=== PATIENT | male | born 1970 | race Caucasian/White ===

== ENCOUNTER 2023-12-18 08:31 | Outpatient (CLI) | payer OTHER, SELFPAY ==
--- NOTE | 2023-12-18 08:34 | XR_ITS ---
FINAL REPORT CLINICAL HISTORY: foot pain COMPARISON: None FINDINGS: RIGHT FOOT 3 views of the right foot were obtained. There is no acute fracture or dislocation. Mild hallux valgus deformity is noted. There is mild degenerative change. Loose bodies are noted at the ankle. Soft tissues are unremarkable. IMPRESSION: Degenerative/chronic changes without acute bony abnormality. Reviewed, Interpreted and Dictated by Patrick Fontanez III, MD Transcribed by Grace Peña Authenticated and [facility]
--- NOTE | 2023-12-18 08:34 | XR_ITS ---
FINAL REPORT CLINICAL HISTORY: foot pain COMPARISON: None FINDINGS: LEFT FOOT Three views of the left foot demonstrate no acute fracture or dislocation. Mild hallux valgus deformity is noted. There is mild degenerative change. The soft tissues are unremarkable. IMPRESSION: Mild degenerative/chronic changes without acute bony abnormality. Reviewed, Interpreted and Dictated by Patrick Fontanez III, MD Transcribed by Grace Peña Authenticated and . [facility]
[2023-12-18 11:25] LABS: Basophils % 0.7 % (0.1-2.0); Eosinophils # 0.2 K/mm3 (0.0-0.4); Eosinophils % 4.2 % (0.1-12.0); Hematocrit 42.2 % (42.0-52.0); Hemoglobin 16.3 g/dL (14.1-18.0); Lymphocytes # 1.1 K/mm3 (0.7-4.5); Lymphocytes % 20.7 % (10-50); Mean Corpuscular HGB Conc 38.6 g/dL (31.8-35.4); Mean Corpuscular Hemoglobin 35.4 pg (27.0-31.2); Mean Corpuscular Volume 91.7 fl (80-94); Mean Platelet Volume 7.3 fl (7.4-10.4); Monocytes # 0.3 K/mm3 (0.1-1.0); Monocytes % 5.9 % (1.7-9.3); Neutrophils # 3.5 K/mm3 (1.8-7.8); Neutrophils % 68.5 % (37.0-80.0); Platelet Count 212 K/mm3 (142-424); Red Blood Count 4.61 M/mm3 (4.60-6.20); Red Cell Distribution Width 13.6 % (11.5-17.5); White Blood Count 5.1 K/mm3 (4.8-10.8)
[2023-12-18 11:42] LABS: Alanine Aminotransferase 57 U/L (12-78); Albumin Level 4.6 g/dl (3.5-5.0); Albumin/Globulin Ratio 1.6 (1.1-1.8); Alkaline Phosphatase 71 U/L (38-126); Anion Gap 9.4 mEq/L (5-15); Aspartate Amino Transferase 36 U/L (17-59); Bilirubin,Total 0.6 mg/dl (0.2-1.3); Blood Urea Nitrogen 17 mg/dl (9-20); Calcium 9.9 mg/dl (8.4-10.2); Carbon Dioxide 30 mmol/L (22.0-30.0); Chloride 104 mmol/L (98-107); Estimated Glomerular Filt Rate 88 ml/min (>60); GFR (African American) 107 ML/MIN (>60); Globulin 2.9 g/dL (1.3-3.2); Glucose 103 mg/dl (74-100); Potassium 4.4 mmoL/L (3.5-5.1); Sodium 139 mmol/L (136-145); Total Protein,Serum 7.5 g/dl (6.3-8.2); Uric Acid 6.9 mg/dl (3.5-8.5)
[2023-12-18 11:48] LABS: C-Reactive Protein 2.7 mg/L (0-4)
[2023-12-18 14:57] LABS: Erythrocyte Sedimentation Rate 8 mm/hr (0-20)
[2023-12-19 12:13] LABS: RA Latex Turbid. <10.0 IU/mL (<14.0)
[2023-12-19 12:49] LABS: Thyroid Stimulating Hormone 2.35 uIU/mL (0.465-4.68)
[2023-12-20 17:18] LABS: Antinuclear Antibodies, IFA Negative (.)
[2023-12-28 02:49] LABS: 1,25 Dihydroxy Vitamin D 87 pg/mL (.); 1,25-Dihydroxy, Vitamin D-2 <10 pg/mL (.); 1,25-Dihydroxy, Vitamin D-3 87 pg/mL (.)
== END 2023-12-18 23:59 | disposition home or self-care (01) ==
PROVIDERS: PCP Family Medicine; Visit Provider Podiatrist
DX: M79.671 Pain in right foot (principal); M79.672 Pain in left foot; G57.62 Lesion of plantar nerve, left lower limb; M19.072 Primary osteoarthritis, left ankle and foot; S93.622A Sprain of tarsometatarsal ligament of left foot, initial encounter; R60.9 Edema, unspecified; E66.9 Obesity, unspecified; Z68.32 Body mass index [BMI] 32.0-32.9, adult
CPT/HCPCS: 36415; 73630; 80050; 80053; 82607; 82652; 82746; 84443; 84550; 85025; 85651; 86038; 86140; 86431

== ENCOUNTER 2024-01-03 13:02 | Outpatient (CLI) | payer OTHER, SELFPAY ==
--- NOTE | 2024-01-03 13:05 | CT_ITS ---
FINAL REPORT TECHNIQUE: Thin section axial images were obtained through the lower extremity without contrast. Reconstruction images were obtained from the axial data. Exam was performed using dose reduction technique. CLINICAL HISTORY: left midfoot pain FINDINGS: LEFT FOOT There is no acute fracture or dislocation. Lisfranc articulation appears intact. There is multijoint degenerative disease. Mild hallux valgus deformity is seen. Achilles tendon is intact. There is no significant joint effusion. No acute soft tissue abnormality is identified. IMPRESSION: No acute osseous abnormality of the left foot. No acute soft tissue abnormality. Reviewed, Interpreted and Dictated by Joselyn Garibay MD Transcribed by Mary Grace Earl Authenticated and [facility]
--- NOTE | 2024-01-03 13:05 | CT_ITS ---
FINAL REPORT TECHNIQUE: Thin section axial images were obtained through the right foot without contrast. Reconstruction images were obtained from the axial data. Exam was performed using dose reduction technique. CLINICAL HISTORY: right foot pain FINDINGS: RIGHT FOOT There is no acute fracture or dislocation. There is multijoint degenerative disease. Lisfranc articulation appears intact. There are several calcifications along the posterior lateral ankle. Achilles tendon is intact. There is no significant joint effusion. Remaining soft tissues are without acute abnormality. IMPRESSION: No acute bony abnormality of the right foot. Multijoint degenerative disease. Reviewed, Interpreted and Dictated by Joselyn Garibay MD Transcribed by Mary Grace Earl Authenticated and [facility]
== END 2024-01-03 23:59 | disposition home or self-care (01) ==
LOC: RAD 13:03
PROVIDERS: PCP Family Medicine; Visit Provider Podiatrist
DX: M19.071 Primary osteoarthritis, right ankle and foot (principal); M19.072 Primary osteoarthritis, left ankle and foot; M77.51 Other enthesopathy of right foot and ankle; M77.52 Other enthesopathy of left foot and ankle; M84.375S Stress fracture, left foot, sequela
CPT/HCPCS: 73700